=== PATIENT | female | born 1985 | race Caucasian/White ===

== ENCOUNTER 2018-02-11 10:36 | Emergency (ER) | payer OTHER ==
[~2018-02-11] VITALS: Ht 167.6 cm; Wt 149.7 kg
[~2018-02-11 10:36] MED LIST: (None)20 M1 PO; ALBU90OI INH; Amoxicillin500 MG PO; FLUC150A PO; IBUP600 PO; MAGIC MOUTHWASH; Monodox100 MG PO; PENVK500 PO; Prednisone20 MG PO; Silvadene20 GM TOP; Ultram50 MG PO; Ventolin Soln3 ML INH; Zithromax250 MG PO
[2018-02-11] MEDS ORDERED: TOPI25 PO (10:53)
[2018-02-11] MEDS ORDERED: SERT25 PO (10:53)
[2018-02-11] MEDS ORDERED: IBUP600 PO (11:43)
== END 2018-02-11 12:00 | disposition home or self-care (01) ==
LOC: ER 10:36
DX: S63.601A Unspecified sprain of right thumb, initial encounter (principal); Z79.899 Other long term (current) drug therapy; Z87.891 Personal history of nicotine dependence; W23.0XXA Caught, crushed, jammed, or pinched between moving objects, initial encounter
CPT/HCPCS: 29125; 73140; 99283

== ENCOUNTER 2021-12-10 03:51 | Emergency (ER) | payer OTHER ==
[~2021-12-10] VITALS: Ht 165.1 cm; Wt 178.7 kg
[~2021-12-10 03:51] MED LIST changes: +SERT25 PO; +TOPI25 PO
[2021-12-10] MEDS ORDERED: Roxicodone5 MG PO (06:16)
[2021-12-10] MEDS ORDERED: IBUP600 PO (06:16)
[2021-12-22] MEDS ORDERED: Norco 5-325 Ta1 EACH PO (09:49)
== END 2021-12-10 07:51 | disposition home or self-care (01) ==
LOC: ER 03:51
DX: S82.832A Other fracture of upper and lower end of left fibula, initial encounter for closed fracture (principal); S80.01XA Contusion of right knee, initial encounter; W18.30XA Fall on same level, unspecified, initial encounter
CPT/HCPCS: 27788; 73562-RT; 73600; 73610; 96374; 99283-25; A9270; J1170

== ENCOUNTER 2021-12-23 06:04 | Day surgery (SDC) | payer OTHER ==
[~2021-12-23] VITALS: Ht 170.2 cm; Wt 185.2 kg
[~2021-12-23 06:04] MED LIST changes: +Norco 5-325 Ta1 EACH PO; +Roxicodone5 MG PO
--- NOTE | 2021-12-23 07:26 | NUR ---
INTO [facility] VIA PERSONAL WHEELCHAIR. History, Chart, Medications and Allergies reviewed before start of procedure.Patient confirms NPO status and agrees with scheduled surgery. Lungs clear T/O to Auscultation. Surgical site prepped with 2% Chlorhexidine cloth wipe. Patient States Post-Procedure ride home has been arranged WITH . HAS WHEELCHAIR, CLOTHES AND PERSONAL BELONGINGS
--- NOTE | 2021-12-23 10:04 | NUR ---
RECEIVED REPORT FROM RICHARD SPRAGUE RN. PT ABLE TO REPOSITION SELF IN BED, TOLERATING PO FLUIDS AND FOOD. PT HAS BEEN EMOTIONAL BUT IS VISITING WITH AT BEDSIDE.
--- NOTE | 2021-12-23 10:09 | NUR ---
PT RESTING IN BED, REQUESTING TO GO HOME.
--- NOTE | 2021-12-23 10:22 | NUR ---
Discharge instructions reviewed with patient. Patient verbalizes understanding. Copy given to patient to take home. Dressing to procedure site clean, dry, intact with no visible drainage, swelling, erythema or bruising noted. PT HAS LEFT LOWER LEG WRAPPED WITH ORTHO GLASS CAST AND LEONOR WRAP BANDAGE. CAPILLARY REFILL ON L TOES IS <3 SECONDS, SKIN IS PINK AND DRY. Patient States Post-Procedure ride home has been arranged. Discharged via wheelchair to private car for ride home. ALL BELONGINGS RETURNED TO PATIENT.
== END 2021-12-23 23:00 | disposition home or self-care (01) ==
LOC: ORSCMMR 06:04 → ORSCSDS 07:30 → ORSCMMR 07:30 → ORD 07:30 → ORSCMMR 23:00
PROVIDERS: Podiatrist Foot & Ankle Surgery
PROC: 0MQR0ZZ Repair Left Ankle Bursa and Ligament, Open Approach (ICD-10-PCS; principal; 2021-12-23 07:30)
PROC: 0QSK04Z Reposition Left Fibula with Internal Fixation Device, Open Approach (ICD-10-PCS; principal; 2021-12-23 07:30)
DX: S82.62XA Displaced fracture of lateral malleolus of left fibula, initial encounter for closed fracture (principal); S93.422A Sprain of deltoid ligament of left ankle, initial encounter; F17.210 Nicotine dependence, cigarettes, uncomplicated; E66.01 Morbid (severe) obesity due to excess calories; Z68.44 Body mass index [BMI] 60.0-69.9, adult
CPT/HCPCS: A9270; C1713; J0171; J0690; J1100; J1885; J2250; J2405; J2704; J3010; J7120

== ENCOUNTER 2023-06-18 07:34 | Emergency (ER) | payer OTHER ==
[~2023-06-18] VITALS: Ht 167.6 cm; Wt 172.4 kg
[2023-06-18 10:29] LABS: Source, Urine Clean Catch
[2023-06-18 10:31] LABS: BASOPHILS ABSOLUTE AUTO 0.06 K/mm3 (0.00-0.23); BASOPHILS PERCENT AUTO 1 % (0-2); EOSINOPHILS PERCENT AUTO 1 % (0-6); Hemoglobin 14.2 g/dL (11.5-16.0); IMMATURE GRAN ABSOLUTE AUTO 0.05 K/mm3 (0.00-0.10); IMMATURE GRAN PERCENT AUTO 0 % (0-1); LYMPHOCYTES ABSOLUTE AUTO 2.83 K/mm3 (0.84-5.20); LYMPHOCYTES PERCENT AUTO 22 % (21-46); MONOCYTES ABSOLUTE AUTO 0.71 K/mm3 (0.16-1.47); MONOCYTES PERCENT AUTO 6 % (4-13); Mean Corpuscular HGB 27.6 pg (26.0-34.0); Mean Corpuscular Volume 84 fL (80-100); Mean Platelet Volume 10.1 fL (9.1-12.4); NEUTROPHILS ABSOLUTE AUTO 8.99 K/mm3 (1.96-9.15); NEUTROPHILS PERCENT AUTO 71 % (41-73); Platelet Count 241 K/mm3 (150-400); RDW Coefficient Variation 14.7 % (11.7-14.2); Red Blood Cell Count 5.14 M/mm3 (3.80-5.20); White Blood Cell Count 12.74 K/mm3 (4.00-11.30)
[2023-06-18 10:32] LABS: Bilirubin, Urine Neg (Neg); Blood, Urine 5+ (Neg); Glucose Qualitative, Urine Neg (Neg); Ketones, Urine Neg (Neg); Leukocyte Esterase, Urine 2+ (Neg); Nitrite, Urine Neg (Neg); Protein, Urine Neg (Neg); Urobilinogen, Urine NORM (Normal)
[2023-06-18 10:50] LABS: Appearance, Urine Clear (Clear); Bacteria Few /hpf; Color, Urine Yellow (P-Yellow); Squamous Epithelial Cells Few /hpf (Few)
[2023-06-18 10:55] LABS: Albumin, Blood 3.5 g/dL (3.4-5.0); Albumin/Globulin Ratio 0.9 (0.8-1.8); Bilirubin, Total 0.4 mg/dL (0.1-1.0); Bun/Creatinine Ratio 9.4 (12.0-20.0); Calcium, Blood 8.9 mg/dL (8.5-10.1); Creatinine, Blood 0.85 mg/dL (0.40-1.00); Globulin, Blood 3.9 g/dL (2.2-4.0); Potassium, Blood 4.1 mmol/L (3.5-5.5); Total Protein, Blood 7.4 g/dL (6.4-8.2)
[2023-06-18 11:32] VITALS: BP 145/96
[2023-06-18] MEDS ORDERED: OXYC5 PO (14:08)
[2023-06-18] MEDS ORDERED: TAMS.4ER PO (14:08)
[2023-06-18] MEDS ORDERED: CEPH500 PO (14:08)
[2023-06-18] MEDS ORDERED: ONDA4ODT MM (14:08)
== END 2023-06-18 14:18 | disposition left against medical advice (07) ==
LOC: ER 07:34
PROVIDERS: Physician Assistant
DX: R10.12 Left upper quadrant pain (principal); R10.2 Pelvic and perineal pain; R31.29 Other microscopic hematuria; R82.71 Bacteriuria; D72.829 Elevated white blood cell count, unspecified; Z53.29 Procedure and treatment not carried out because of patient's decision for other reasons
CPT/HCPCS: 76770; 80053; 81001; 81025; 83690; 85025; 87086; 96374; 99283-25; J1885